=== PATIENT | male | born 1970 | race Caucasian/White ===

== ENCOUNTER 2019-01-20 09:49 | Emergency (ER) | payer OTHER ==
[~2019-01-20] VITALS: Ht 180.3 cm; Wt 81.7 kg
[~2019-01-20 09:49] MED LIST: ALPRAZOLAM2 MG PO; NORCO 7.5-3251 EACH PO; TOFRANIL-PM75 MG PO
[2019-01-20 11:10] VITALS: BP 151/100
== END 2019-01-20 11:10 | disposition home or self-care (01) ==
LOC: ER 09:49
DX: M54.5 Low back pain (principal); E78.5 Hyperlipidemia, unspecified; Z88.8 Allergy status to other drugs, medicaments and biological substances